=== PATIENT | female | born 1975 | race African-American/Black ===

== ENCOUNTER 2016-06-29 09:47 | Emergency (ER) | payer SELFPAY ==
[2016-06-29 10:01] VITALS: TEMP 98.4; BMI 36.6
--- NOTE | 2016-06-29 10:02 | PDOC ---
History of Present Illness - General Chief Complaint: Migraine Headache Stated Complaint: MIGRAINE HEADACHE Time Seen by Provider: 06/29/16 09:59 - History of Present Illness Initial Comments: 06/29/16 10:17 Chief complaint: Headache History of present illness: Patient complains of a headache since yesterday. There has been discomfort on the left right and occipital areas. No dizziness, lightheadedness, vertigo, visual or focal neurologic symptoms, photophobia, nausea, or vomiting Review of systems: Patient is late for her menstruation, uses no control, and admits there is a possibility of . No fever/chills, URI symptoms, sore throat, cough, chest pain, shortness of breath, abdominal pain, nausea, vomiting, diarrhea, urinary tract symptoms, vaginal bleeding or discharge, visual or focal neurologic symptoms, unsteadiness of gait Past medical history: Intermittent headaches in the past, characterized as "migraines," but not with associated migraine symptoms. No past history of high blood pressure or diabetes, although moderate obesity for some time. Social/family history reviewed and noncontributory did no smoking, occasional social alcohol, no drugs, no family history of neurologic disease, early coronary artery disease, metabolic disease including diabetes, or cancer. Denies recent stress, anxiety, or worry, although appears somewhat anxious. Physical exam: Alert and oriented 3, well-developed well-nourished, no acute distress, cheerful and cooperative. The patient does not appear to be the least bit uncomfortable although she states that she has an occipital headache. Afebrile, vital signs normal except for mildly elevated blood pressure in the 150/110 range PERRLA 4 mm, fundi benign with sharp disc margins and good central venous pulsations. No AV nicking, hemorrhages, or exudates. ENT clear Neck supple without bruit mass or nodes Lungs clear with full breath sounds throughout bilaterally CV S1 and S2 normal without murmur rub or gallop pulses full and symmetric no JVD or edema 90 and regular Abdomen benign Neurological C2 to 12 intact. Strength full and symmetric. No focal sensory or motor deficits. Gait stable and unimpaired. Reflexes 2-3+ and symmetric Extremities no CCE Skin clear, no rash, adequate turgor and wet mucous membranes Impression: Tension headache, no real description of migraines, no neurologic signs or suggestion of acute intracranial disease. Rule out . Elevated blood pressure. Observe and recheck. Treat if necessary Plan: As above. Analgesics and observe. Past History - Past Medical History Allergies/Adverse Reactions: Allergies Allergy/AdvReac Type Severity Reaction Status Date / Time No Known Allergies Allergy Verified 06/29/16 10:01 Home Medications: Ambulatory Orders Ibuprofen 800 mg PO TID PRN #20 tablet 06/29/16 Olmesartan/Hydrochlorothiazide [Benicar Hct 20-12.5 mg Tablet] 1 tab PO DAILY # 14 tablet 06/29/16 Asthma: Yes Other medical history: MIGRAINES - Surgical History Abdominal Surgery: Yes (HERNIA) - Psycho/Social/Smoking Cessation Hx Anxiety: No Suicidal Ideation: No Smoking Status: No Smoking History: Never smoked Have you smoked in the past 12 months: No Number of Cigarettes Smoked Daily: 0 Hx Alcohol Use: Yes Drug/Substance Use Hx: No Substance Use Type: Alcohol *Physical Exam - Vital Signs Last Vital Signs Temp Pulse Resp BP Pulse Ox 98.4 F 86 16 159/114 98 06/29/16 09:49 06/29/16 09:49 06/29/16 09:49 06/29/16 09:49 06/29/16 09:49 Medical Decision Making - Medical Decision Making 07/01/16 07:49 The patient's headache is likely due to her elevated blood pressure, which seems to be labile and jesus as high as 180/120 during observation. She was given intravenous DISHA inhibitor, which resulted in a sustained lowering of the pressure to the 150/100 range. Her headaches resolved. Additional blood pressure medication was prescribed on a temporary basis until she is able to consult her physician for further blood pressure monitoring and treatment. Low salt diet was recommended. Strongly recommended to have her pressure rechecked in 24 hours, in the meantime, to rest and to return to the emergency room if the headache returns, if there are other symptoms such as chest pain, shortness of breath, lightheadedness, dizziness, numbness or tingling in the extremities, or weakness which is one-sided. The patient seems to understand and agree. Discharged fully ambulatory, neurologically intact, with no headache, blood pressure control, to follow up as directed. *DC/Admit/Observation/Transfer Diagnosis at time of Disposition: High blood pressure Qualifiers: Hypertension type: essential hypertension Qualified Code(s): I10 - Essential ( primary) hypertension - Discharge Dispostion Disposition: HOME Condition at time of disposition: Stable Admit: No - Prescriptions Prescriptions: Olmesartan/Hydrochlorothiazide [Benicar Hct 20-12.5 mg Tablet] 1 tab PO DAILY # 14 tablet Ibuprofen 800 mg PO TID PRN #20 tablet PRN Reason: Headache - Referrals Referrals: Toshia Harper MD [Staff Physician] - 24 hours - Patient Instructions Printed Discharge Instructions: High Blood Pressure Additional Instructions: Low-salt diet. Get blood pressure checked again in 24 hours. Take prescribed medication immediately with first dose tonight and next dose tomorrow morning. See your primary physician within 24 hours to monitor her blood pressure and adjust therapy - Post Discharge Activity Work/School Note: Back to Work
[2016-06-29] MEDS ORDERED: IBUPROFEN 600 MG TABLET (FP) PO ONE (11:58)
[2016-06-29] MEDS ORDERED: IBUPROFEN 400 MG TABLET (FP) PO ONE (11:59)
[2016-06-29 12:02] LABS: HIV 1 & 2 AB NEGATIVE; HIV 1 AGp24 NEGATIVE
[2016-06-29] MEDS ORDERED: ENALAPRILAT DIHYDRATE 2.5 MG/2 ML VIAL IVPB ONE ×2 (12:02→12:17)
[2016-06-29 13:28] VITALS: PULSE 76
[2016-06-29 14:29] VITALS: BP 173/100
== END 2016-06-29 14:48 | disposition home or self-care (01) ==
LOC: FER 09:47
PROC: 3E033GC Introduction of Other Therapeutic Substance into Peripheral Vein, Percutaneous Approach (ICD-10-PCS; principal; 2016-06-29)
DX: I10 Essential (primary) hypertension (principal); J45.909 Unspecified asthma, uncomplicated; E66.9 Obesity, unspecified; Z68.36 Body mass index [BMI] 36.0-36.9, adult
CPT/HCPCS: 36415; 84703; 87389; 99283-25

== ENCOUNTER 2021-03-21 10:25 | Emergency (ER) | payer SELFPAY ==
[2021-03-21 10:36] VITALS: BP 121/85; PULSE 76; TEMP 98.7; BMI 35.2
[2021-03-21] MEDS ORDERED: ACETAMINOPHEN 325 MG TABLET (FP) PO ONE (11:00)
[2021-03-21] MEDS ORDERED: METHOCARBAMOL 500 MG TABLET PO ONE (11:00)
[2021-03-21] MEDS ORDERED: KETOROLAC TROMETHAMINE 30 MG/1 ML VIAL IM ONE (11:00)
[2021-03-21] MEDS ORDERED: LIDOCAINE 5% TOPICAL PATCH TP ONE (11:01)
[2021-03-21] MEDS ORDERED: ACETAMINOPHEN 325 MG TABLET (FP) ONE (11:07)
[2021-03-21] MEDS ORDERED: LIDOCAINE 5% TOPICAL PATCH ONE (11:08)
[2021-03-21 11:34] LABS: EPITHELIAL CELLS MANY /hpf
[2021-03-21] MEDS ORDERED: KETOROLAC TROMETHAMINE 30 MG/1 ML VIAL ONE (11:35)
[2021-03-21] MEDS ORDERED: METHOCARBAMOL 500 MG TABLET ONE (11:35)
[2021-03-21] MEDS ORDERED: LIDOCAINE PATCH REMOVAL MC SCH (22:00)
== END 2021-03-21 12:45 | disposition home or self-care (01) ==
LOC: FER 10:25
PROC: 3E0233Z Introduction of Anti-inflammatory into Muscle, Percutaneous Approach (ICD-10-PCS; principal; 2021-03-21)
DX: M54.50 Low back pain, unspecified (principal); N30.00 Acute cystitis without hematuria
CPT/HCPCS: 81003; 81015; 84703; 87086; 99284-25

== ENCOUNTER 2023-11-04 06:51 | Emergency (ER) | payer BC, OTHER ==
[2023-11-04 07:06] VITALS: RESP 18; TEMP 98.8; BMI 30.8
[2023-11-04] MEDS: SODIUM CHLORIDE 1,000 ML IV STA ×2 (07:30→09:45)
[2023-11-04] MEDS ORDERED: FAMOTIDINE 20 MG/50 ML IVPB 20 MG/50 ML MG IVPB ONE (07:35)
[2023-11-04] MEDS ORDERED: ACETAMINOPHEN INJECTION 100 ML ONE (07:35)
[2023-11-04] MEDS ORDERED: ONDANSETRON 4 MG/2 ML VIAL ONE (07:35)
[2023-11-04] MEDS: ACETAMINOPHEN 1000 MG/100 ML BAG IVPB ONE (07:42)
[2023-11-04] MEDS: ONDANSETRON 4 MG/2 ML VIAL IVPUSH ONE (07:42)
[2023-11-04] MEDS: FAMOTIDINE 20 MG/50 ML IVPB 20 MG/50 ML MG IVPB ONE (07:57)
[2023-11-04 08:09] LABS: HEMATOCRIT 46.1 % (32.4-45.2); HEMOGLOBIN 14.6 G/dL (10.7-15.3); MCH 30.8 pg (25.7-33.7); MCHC 31.8 g/dl (32.0-36.0); MEAN CELL VOLUME 97.1 fl (80-96); MEAN PLT VOLUME 8.6 fl (7.5-11.1); PLATELET COUNT 318.5 10^3/uL (134-434); RBC 4.75 10^6/uL (3.60-5.2); RDW 13.6 % (11.6-15.6)
[2023-11-04 08:26] LABS: ALBUMIN 4.3 g/dl (3.4-5.0); ALK PHOS 43 U/L (45-117); ANION GAP 10 mmol/L (4-13); CALCIUM 9.9 mg/dl (8.5-10.1); CHLORIDE 102 mmol/L (98-107); CO2 26 mmol/L (21-32); CREATININE 0.9 mg/dl (0.6-1.3); GLUCOSE,RANDOM 128 mg/dl (74-106); POTASSIUM 3.5 mmol/L (3.5-5.1); SGOT/AST 9 U/L (15-37); SGPT/ALT 13 U/L (7-52); SODIUM 138 mmol/L (136-145); TOT PROT 7.1 g/dl (6.4-8.2)
[2023-11-04 09:08] LABS: PLATELET ESTIMATE ADEQUATE
[2023-11-04 10:46] LABS: HCG,QUALITATIVE URINE Negative
[2023-11-04 10:52] LABS: EPITHELIAL CELLS 21-50 /hpf
[2023-11-04 11:27] VITALS: BP 179/116; PULSE 75
== END 2023-11-04 12:29 | disposition home or self-care (01) ==
LOC: FER 06:51
PROC: 3E033GC Introduction of Other Therapeutic Substance into Peripheral Vein, Percutaneous Approach (ICD-10-PCS; principal; 2023-11-04)
PROC: 3E033GC Introduction of Other Therapeutic Substance into Peripheral Vein, Percutaneous Approach (ICD-10-PCS; 2023-11-04)
PROC: 3E033NZ Introduction of Analgesics, Hypnotics, Sedatives into Peripheral Vein, Percutaneous Approach (ICD-10-PCS; 2023-11-04)
PROC: 3E0337Z Introduction of Electrolytic and Water Balance Substance into Peripheral Vein, Percutaneous Approach (ICD-10-PCS; 2023-11-04)
PROC: 3E0337Z Introduction of Electrolytic and Water Balance Substance into Peripheral Vein, Percutaneous Approach (ICD-10-PCS; 2023-11-04)
DX: R11.2 Nausea with vomiting, unspecified (principal); R10.84 Generalized abdominal pain; R50.9 Fever, unspecified; F10.90 Alcohol use, unspecified, uncomplicated; Y90.9 Presence of alcohol in blood, level not specified
CPT/HCPCS: 36415; 74177-TC; 80053; 81003; 81015; 83690; 84703; 85027; 87086; 99285-25; J0131; Q9967